=== PATIENT | male | born 1965 | race Caucasian/White ===

== ENCOUNTER 2021-07-23 12:39 | Outpatient (CLI) | payer BC, SELFPAY ==
--- NOTE | ~2021-07-23 | CT_ITS ---
EXAMINATION: CT abdomen wo con DATE: 07/23/2021 13:07 INDICATION: Abdominal hernia without obstruction or gangrene TECHNIQUE: Computed tomography (CT) of the abdomen was performed without intravenous contrast. Automa tashia exposure control and iterative reconstruction technique were employed. Automated exposure control and iterative reconstruction technique were employed. The dose-length product was 530.74 mGy-cm. COMPARISON: 01/07/2016 FINDINGS: Lung bases are clear. Heart size normal. No pericardial or pleural effusion. Liver, gallbladder, sple en, pancreas and bilateral adrenal glands are normal. 2 mm nonobstructing stones at the lower pole of the left kidney and upper pole of the right kidney. There are few diverticula along the sigmoid colo n without adjacent inflammatory change to suggest diverticulitis. Small bowel and appendix are normal . No pathologically enlarged abdominal lymphadenopathy. Very small fat-containing umbilical hernia. T here is mild scarring in the immediately more cephalad supraumbilical subcutaneous fat with underlyin g ventral hernia mesh repair. Mild degenerative skeletal changes in the visualized spine and bilatera l sacralized joints. IMPRESSION: 1. Postoperative change of prior ventral hernia mesh repair. Very small fat-containing umbilical av ia. 2. Nonobstructing bilateral 2 mm renal stones. Reviewed, dictated and finalized at location B. IMPRESSION: 1. Postoperative change of prior ventral hernia mesh repair. Very small fat-con taining umbilical hernia. 2. Nonobstructing bilateral 2 mm renal stones.
== END 2021-07-23 12:40 | disposition home or self-care (01) ==
PROVIDERS: PCP Family Medicine; Visit Provider Physician Assistant
DX: K46.9 Unspecified abdominal hernia without obstruction or gangrene (principal); K42.9 Umbilical hernia without obstruction or gangrene; N20.0 Calculus of kidney; Z98.890 Other specified postprocedural states
CPT/HCPCS: 74150